=== PATIENT | female | born 1970 | race Caucasian/White ===

== ENCOUNTER → 2017-01-29 | Outpatient (CLI) | payer OTHER ==
[2017-01-31 11:12] LABS: C-REACTIVE PROT HIGHSEN 2.1 MG/L
== END | disposition home or self-care (01) ==
LOC: C.LAB 15:25
PROVIDERS: ATTEND Physical Medicine & Rehabilitation
DX: M99.81 Other biomechanical lesions of cervical region (principal); M54.12 Radiculopathy, cervical region; M46.1 Sacroiliitis, not elsewhere classified

== ENCOUNTER → 2017-04-04 | Day surgery (SDC) | payer OTHER ==
[2017-03-06 12:09] VITALS: Ht 152.4 cm; Wt 65.9 kg
[~2017-04-04] VITALS: Ht 152.4 cm; Wt 65.9 kg
[~2017-04-04] MED LIST: ATV/1 PO; BIOT1CAP9 PO; BUPIVACAINE 0.25% 2.5MG/ML PF 10 ML VIAL ONE; BUSP15TA70 PO; DTRSR/10 PO; ESTR2TAB PO; GABA-113 PO; LAMO200T35 PO; LIDOCAINE HCL 1% MPF 5 ML VIAL ONE; MONT1TAB3 PO; MULT-1027 PO; NXM/40 PO; TRAZ100T29 PO; VORT1TAB3 PO
--- NOTE | 2017-04-04 09:16 | History & Physical Bridge - [place] ---
H&P Re-Evaluation Bridge Note: I have examined the patient, reviewed the History & Physical and in the interval since the performance of the History & Physical I have noted the following changes of clinical significance: No changes noted
[2017-04-04 09:46] VITALS: TEMP 37.1
--- NOTE | 2017-04-04 09:48 | Discharge Instructions ---
Discharge Instructions Date of Service Apr 04, 2017. Visit Reason for Visit: Low Back Pain Discharge Discharge Diagnosis / Problem: low back pain Discharge Goals Goal(s): Decrease discomfort, Improve function Activity Recommendations Activity Limitations: resume your previous activity Anesthesia . Post Anesthesia Instructions: If you have had General Anesthesia or IV Sedation: * Do not drive today. * Resume driving when surgeon permits. * Do not make important decisions or sign legal documents today. * Call surgeon for: 1. Temperature elevations greater than 101 degrees F. 2. Uncontrollable pain. 3. Excessive bleeding. 4. Persistent nausea and vomiting. 5. Medication intolerance (nausea, vomiting or rash). * For nausea and vomiting use only clear liquids such as: tea, soda, bouillon until nausea subsides, then gradually increase diet as tolerated. * If you have any concerns or questions, call your surgeon's office. If physician is unavailable and it is an emergency, call 911 or go to the nearest emergency room. . Diet Recommendations Recommended Home Diet: resume previous diet Procedures Procedures Performed: Bilateral L4-5, L5-S1 Medial Branch Blocks Pending Studies Studies pending at discharge: no Medical Emergencies . Who to Call and When: Medical Emergencies: If at any time you feel your situation is an emergency, please call 911 immediately. . Non-Emergent Contact Non-Emergency issues call your: Specialist . . "Provider Documentation" section prepared by Matteo Irving. .
[2017-04-04 10:09] VITALS: BP 100/70; PULSE 87; O2SAT 96
--- NOTE | 2017-04-04 10:44 | OPERATIVE REPORT ---
DATE OF OPERATION: 04/04/2017 PREOPERATIVE DIAGNOSIS: Lumbar facet arthropathy, chronic low back pain. POSTOPERATIVE DIAGNOSIS: Same. PROCEDURE: Bilateral L4-L5, L5-S1 medial branch blocks under fluoroscopic guidance. INDICATIONS: The patient is a 46-year-old female who presents today with longstanding history of low back pain. She has not responded to conservative measures and her examination and history were most consistent with a facet etiology of the pain. She presents today to undergo diagnostic medial branch blockings to confirm that this is indeed the generator of chronic low back pain. PHYSICAL EXAMINATION: Pleasant female seated comfortably. She has point tenderness to palpation in the lower lumbar facet areas. These are worse with extension and rotation. She has normal motor and sensory examination. Negative seated straight leg raises. CONSENT: Verbal and written consent was obtained from the patient. Risks and benefits were reviewed. Risks include but are not limited to abscess and allergic reaction. The patient wishes to proceed. DESCRIPTION OF PROCEDURE: The patient was taken back into the OR #2 of the [facility]. She was maintained in a prone position. Backside was cleansed with Betadine x3 and a dry sterile dressing was applied. Fluoroscope was used to identify the L4 transverse process on the left, the L5 transverse process on the left and the left sacral ala. Overlying skin was anesthetized with 1 mL lidocaine 1% with a 25 gauge 1.5-inch needle at each site. A 25 gauge 3.5 inch spinal needle was then directed under fluoroscopic guidance into the back targeting at each site. She then underwent injection after negative aspiration of bupivacaine 0.25% 1 mL at each site. The right L4 transverse process junction, the right L5 transverse process junction and the right sacral ala then were first fluoroscopically identified. Overlying skin was then anesthetized with 1 mL of lidocaine 1% with a 25 gauge 1.5-inch needle. A 25 gauge 3.5 inch spinal needle was then placed targeting the bone at each site. It was then injected after negative aspiration with 1 mL of bupivacaine 0.25% at each site after negative aspiration. Injections were well tolerated. DISPOSITION: The patient was taken out into the discharge recovery area where she will be discharged home. She has been asked to keep a pain diary for the next 2 days and really try things that bother her back particularly today to see how effective the blocks are. I attest to the content of the Intraoperative Record and any orders documented therein. Any exception s are noted below.
== END | disposition home or self-care (01) ==
LOC: X.SURG 09:05
PROVIDERS: ATTEND Physical Medicine & Rehabilitation
DX: M46.96 Unspecified inflammatory spondylopathy, lumbar region (principal); G89.29 Other chronic pain; M54.5 Low back pain; M48.02 Spinal stenosis, cervical region

== ENCOUNTER → 2017-05-31 | Day surgery (SDC) | payer OTHER ==
[2017-05-11 10:19] VITALS: Ht 152.4 cm; Wt 65.9 kg
[~2017-05-31] VITALS: Ht 152.4 cm; Wt 65.9 kg
[~2017-05-31] MED LIST changes: -LIDOCAINE HCL 1% MPF 5 ML VIAL ONE
[2017-05-31] MEDS: LIDOCAINE HCL 1% 20 ML VIAL ONE ×2 (14:01→14:02)
--- NOTE | 2017-05-31 14:40 | [facility] Post Operative Brief Note ---
Immediate Operative Summary Operative Date May 31, 2017. Pre-Operative Diagnosis lumbar facet arthropathy Post-Operative Diagnosis same Procedure(s) Performed Bilateral L4-5, L5-S1 Radio Frequency Denervation Surgeon Dr Matteo Irving Shutdown Planner Surgeon(s) None Estimated Blood Loss 0 Findings Consistent with Post-Op Diagnosis Specimens NA Drains None Anesthesia Type Local Complication(s) none Disposition Disposition:
[2017-05-31 14:41] VITALS: TEMP 37
--- NOTE | 2017-05-31 14:41 | Discharge Instructions ---
Discharge Instructions Date of Service May 31, 2017. Visit Reason for Visit: Low Back Pain Discharge Discharge Diagnosis / Problem: low back pain Discharge Goals Goal(s): Decrease discomfort, Improve function Activity Recommendations Activity Limitations: resume your previous activity Anesthesia . Post Anesthesia Instructions: If you have had General Anesthesia or IV Sedation: * Do not drive today. * Resume driving when surgeon permits. * Do not make important decisions or sign legal documents today. * Call surgeon for: 1. Temperature elevations greater than 101 degrees F. 2. Uncontrollable pain. 3. Excessive bleeding. 4. Persistent nausea and vomiting. 5. Medication intolerance (nausea, vomiting or rash). * For nausea and vomiting use only clear liquids such as: tea, soda, bouillon until nausea subsides, then gradually increase diet as tolerated. * If you have any concerns or questions, call your surgeon's office. If physician is unavailable and it is an emergency, call 911 or go to the nearest emergency room. . Diet Recommendations Recommended Home Diet: resume previous diet Procedures Procedures Performed: Bilateral L4-5, L5-S1 Radio Frequency Denervation Pending Studies Studies pending at discharge: no Medical Emergencies . Who to Call and When: Medical Emergencies: If at any time you feel your situation is an emergency, please call 911 immediately. . Non-Emergent Contact Non-Emergency issues call your: Specialist . . "Provider Documentation" section prepared by Matteo Irving. .
[2017-05-31 15:08] VITALS: BP 102/64; PULSE 65; O2SAT 98
--- NOTE | 2017-05-31 16:18 | OPERATIVE REPORT ---
DATE OF OPERATION: 05/31/2017 PREOPERATIVE DIAGNOSES: Lumbar facet arthropathy, chronic low back pain, lumbar spondylosis. POSTOPERATIVE DIAGNOSES: Same. PROCEDURE: Bilateral L4-L5, L5-S1 facet radiofrequency denervation. INDICATIONS: The patient is a 46-year-old white female who underwent successful bilateral branch blocks at L4-L5 and L5-S1 with about 85% improvement of her pain. Given the positive response, she presented today for denervation to provide her with longer lasting relief of pain relief. PHYSICAL EXAMINATION: Pleasant female seated comfortably. She had a bone marrow aspiration site that was clean, dry and intact on the superior sacral area on the left side and she had normal motor and sensory exam of her lower extremities. CONSENT: Verbal and written consent was obtained from the patient. Risks and benefits were reviewed. Risks include but are not limited to abscess, allergic reaction and nerve denervation. She wishes to proceed. DESCRIPTION OF PROCEDURE: The patient was taken back to the special procedures room of the [facility] where she was maintained in a prone position. Backside was cleansed with Betadine x3 and a dry sterile dressing was applied. Fluoroscope was used to identify the transverse processes of L4 bilaterally, L5 bilaterally, and the sacral lopes bilaterally. She underwent anesthetization of the surface of each skin with 1 mL lidocaine 1% with a 25-gauge 1-inch needle at all 6 sites, then a 22-gauge [place] needle was placed. After placement, it was maneuvered, so that sensory stimulation was provoked at 0.2 volts or less at all 6 sites and motor stimulation provoked robust localized paraspinal spasms, but nothing radiating down the leg. After this was confirmed, she underwent anesthetization at each site individually with 1 mL lidocaine 1% and then underwent radiofrequency denervation 100 seconds, 80 degrees x2 at each site. The left L4 site was done first, then the left L5 site, then the left sacral ala, then the right L4 site, the right L5 site and the right sacral ala. Following the denervation at each site, she was then injected with 1 mL of bupivacaine 0.25% at each site. The procedure was well tolerated and she will follow up in the office in 4 weeks' time. I attest to the content of the Intraoperative Record and any orders documented therein. Any exception s are noted below.
== END | disposition home or self-care (01) ==
LOC: X.SURG 12:00
PROVIDERS: ATTEND Physical Medicine & Rehabilitation
DX: M46.96 Unspecified inflammatory spondylopathy, lumbar region (principal); Z98.890 Other specified postprocedural states